=== PATIENT | male | born 1950 | race Caucasian/White ===

== ENCOUNTER 2018-04-20 13:03 | Inpatient (IN) | payer OTHER ==
[~2018-04-20] VITALS: Ht 185.4 cm; Wt 99.8 kg
--- NOTE | ~2018-04-20 | PR ---
[place], [place] PROGRESS NOTE NAME: NGA GIBBS UNIT #: [id number] ROOM: 317 DOCTOR: NESS CUNNINGHAM MD BIRTHDATE: [birth year] DOS: 04/22/2018 INTERVAL NOTE CHIEF COMPLAINT: "Morning." SUMMARY OF THE VISIT: The patient was once again interviewed as he was resting quietly in bed. He had his eyes closed as I entered, but open them very quickly as I called out his name. His responses continued to be very short and simple, at times inappropriate to the questions asked of him and he at times would stop mid sentence and seemed to forget what he was saying. He was pleasant and cooperative with me; however nurses' report, he does have periods of being resistant to care and can be still verbally and physically combative. MENTAL STATUS: He is alert and oriented to self, unclear place, certainly not time. Mood does still seem to be labile. Affect at times inappropriate. As mentioned previously, he does process slowly and he derails in his conversation frequently. Short-term memory continues to be problematic. PLAN: I will increase Exelon patch to its maximum dose of 13.3 mg a day while I maintain Namenda at 5 mg b.i.d., plan to increase this accordingly, maintain his other psychotropics, engage in individual and canales milieu activity, returning then to the least restrictive environment when psychiatrically stable. NESS CUNNINGHAM MD CM:PNTRANS 2 1519 NESS CUNNINGHAM MD 04/22/18 1518 interface
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
[2018-04-20 13:07] VITALS: BP 150/70; BP 94/66
[2018-04-20] MEDS ORDERED: DEPAKOTE500 MG PO (14:17)
[2018-04-20] MEDS ORDERED: EXELON1 EACH T (14:18)
[2018-04-20] MEDS ORDERED: THERA-M1 EACH PO (14:19)
[2018-04-20] MEDS ORDERED: REMERON15 M2 PO (14:20)
[2018-04-20] MEDS ORDERED: VITAMIN D50000 UNIT PO (14:21)
[2018-04-20] MEDS ORDERED: DEPAKOTE250 MG PO (14:22)
[2018-04-20] MEDS ORDERED: LOVENOX30 MG/0.3 SC (14:22)
[2018-04-20] MEDS ORDERED: ATIVAN ORAL C2 MG/ML IM (14:24)
[2018-04-20] MEDS ORDERED: ATIVAN0.5 MG PO (14:25)
[2018-04-20] MEDS ORDERED: NORCO 5-325 TA1 EACH PO (14:25)
[2018-04-20] MEDS ORDERED: VISTARIL25 MG PO (14:26)
[2018-04-20 14:36] VITALS: BP 130/62
[2018-04-20 15:03] VITALS: BP 130/62
[2018-04-20 15:21] LABS: BILIRUBIN NEGATIVE (NEGATIVE); BLOOD NEGATIVE (NEGATIVE); CLARITY SL CLOUDY (CLEAR); COLOR YELLOW (YELLOW); GLUCOSE NEGATIVE (NEGATIVE); KETONE NEGATIVE (NEGATIVE); LEUKO ESTERASE TRACE (NEGATIVE); NITRITE POSITIVE (NEGATIVE); SPECIFIC GRAVITY 1.015 (1.005-1.030); UROBILINOGEN 0.2 E.U./dl (0.2-1.0)
[2018-04-20 15:31] LABS: BACTERIA 4+; WBC 21-30 wbc/hpf (0-5)
[2018-04-20 16:05] LABS: BASO % 0.2 % (0.0-1.0); EOS # 0.1 10*3/uL (0.0-0.4); EOS % 0.5 % (1.0-4.0); HEMATOCRIT 36.4 % (42.0-52.0); HEMOGLOBIN 11.3 g/dl (14.0-18.0); LYMPH # 1.1 10*3/uL (1.3-4.4); LYMPH % 10.3 % (27.0-41.0); MEAN CELL VOLUME 93.6 fl (80.0-94.0); MEAN PLATELET VOLUME 8.8 fl (9.6-12.3); MONO # 0.8 10*3/uL (0.1-1.0); MONO % 6.9 % (3.0-9.0); NEUT # 8.9 10*3/uL (2.3-7.9); NEUT % 81.6 % (47.0-73.0); PLATELET COUNT AUTOMATED 268 10*3/uL (130-400); RED BLOOD COUNT 3.89 10*6/uL (4.50-5.90); RED CELL DISTRI WIDTH 13.8 % (0-14.5); WHITE BLOOD COUNT 10.9 10*3/uL (4.8-10.8)
[2018-04-20 16:15] LABS: ALBUMIN 2.9 gm/dl (3.1-4.5); ALKALINE PHOSPHATASE 235 U/L (45-117); BUN 10 mg/dl (7-24); CHLORIDE 104 mmol/L (98-107); CREATININE 0.71 mg/dL (0.70-1.30); POTASSIUM 3.9 mmol/L (3.5-5.1); SGOT/AST 15 IU/L (3-35); SGPT/ALT 32 U/L (12-78); SODIUM 138 mmol/L (136-145); TOTAL PROTEIN 7.1 gm/dL (6.4-8.2)
[2018-04-20 19:42] VITALS: BP 126/73
[2018-04-21 06:32] LABS: BASO % 0.2 % (0.0-1.0); EOS % 0.2 % (1.0-4.0); HEMOGLOBIN 11.7 g/dl (14.0-18.0); LYMPH # 1.2 10*3/uL (1.3-4.4); LYMPH % 11.1 % (27.0-41.0); MEAN CELL VOLUME 94.1 fl (80.0-94.0); MEAN CORPUSCULAR HGB CONC 30.8 g/dl (33.0-37.0); MEAN PLATELET VOLUME 8.9 fl (9.6-12.3); MONO % 8.9 % (3.0-9.0); NEUT # 8.4 10*3/uL (2.3-7.9); PLATELET COUNT AUTOMATED 266 10*3/uL (130-400); RED BLOOD COUNT 4.04 10*6/uL (4.50-5.90); RED CELL DISTRI WIDTH 13.9 % (0-14.5); WHITE BLOOD COUNT 10.6 10*3/uL (4.8-10.8)
[2018-04-21 06:43] LABS: ALBUMIN 2.8 gm/dl (3.1-4.5); ALKALINE PHOSPHATASE 232 U/L (45-117); BUN 12 mg/dl (7-24); CHLORIDE 104 mmol/L (98-107); CHOLESTEROL 151 mg/dL (<200); CREATININE 0.82 mg/dL (0.70-1.30); HDL CHOLESTEROL 47 mg/dl (40-60); LDL CHOLESTEROL 83 mg/dL (9-159); POTASSIUM 3.8 mmol/L (3.5-5.1); SGOT/AST 9 IU/L (3-35); SGPT/ALT 28 U/L (12-78); SODIUM 142 mmol/L (136-145); TOTAL PROTEIN 7.3 gm/dL (6.4-8.2); TRIGLYCERIDES 103 mg/dl (<150); VLDL CHOLESTEROL 21 mg/dL (6-40)
[2018-04-21 06:48] LABS: THYROID STIM HORMONE (HS) 0.791 uIU/ml (0.358-4.75)
[2018-04-21 07:56] VITALS: BP 130/70
[2018-04-21 07:58] LABS: VITAMIN D, 25-HYDROXY 23.4 ng/mL (30-100)
[2018-04-21 20:23] VITALS: BP 126/86
[2018-04-22 08:03] VITALS: BP 102/68
[2018-04-23] MEDS ORDERED: DEPAKOTE500 MG PO (16:11)
[2018-04-23] MEDS ORDERED: EXELON1 EACH T (16:12)
[2018-04-23] MEDS ORDERED: DEPAKOTE250 MG PO (16:13)
[2018-04-23] MEDS ORDERED: REMERON15 M2 PO (16:13)
[2018-04-23] MEDS ORDERED: ATIVAN ORAL C2 MG/ML IM (16:14)
[2018-04-23] MEDS ORDERED: VISTARIL25 MG PO (16:15)
[2018-04-23] MEDS ORDERED: ATIVAN0.5 MG PO (16:15)
== END 2018-04-22 15:50 | disposition short-term general hospital (02) | DRG 883 ==
LOC: ED 13:03 → 3N 13:43
PROVIDERS: Internal Medicine; Psychiatry & Neurology Psychiatry
DX: F63.81 Intermittent explosive disorder (principal); N30.00 Acute cystitis without hematuria; E44.0 Moderate protein-calorie malnutrition; F03.90 Unspecified dementia, unspecified severity, without behavioral disturbance, psychotic disturbance, mood disturbance, and anxiety; F41.9 Anxiety disorder, unspecified; D64.9 Anemia, unspecified; E55.9 Vitamin D deficiency, unspecified; R73.9 Hyperglycemia, unspecified; R73.03 Prediabetes; Z91.018 Allergy to other foods; Z87.81 Personal history of (healed) traumatic fracture; Z79.899 Other long term (current) drug therapy; Z68.29 Body mass index [BMI] 29.0-29.9, adult

== ENCOUNTER 2018-04-22 15:57 | Inpatient (IN) | payer OTHER ==
[~2018-04-22] VITALS: Ht 182.8 cm; Wt 97.2 kg
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
[~2018-04-22 15:57] MED LIST: ATIVAN ORAL C2 MG/ML IM; ATIVAN0.5 MG PO; DEPAKOTE250 MG PO; DEPAKOTE500 MG PO; EXELON1 EACH T; LOVENOX30 MG/0.3 SC; NORCO 5-325 TA1 EACH PO; REMERON15 M2 PO; THERA-M1 EACH PO; VISTARIL25 MG PO; VITAMIN D50000 UNIT PO
[2018-04-22 16:55] VITALS: BP 125/72
[2018-04-22 20:00] VITALS: BP 126/78
[2018-04-23] VITALS: BP 110/60
[2018-04-23 06:00] LABS: BUN 10 mg/dl (7-24); CHLORIDE 107 mmol/L (98-107); CREATININE 0.65 mg/dL (0.70-1.30); POTASSIUM 3.5 mmol/L (3.5-5.1); SODIUM 142 mmol/L (136-145)
[2018-04-23 06:10] LABS: BASO % 0.5 % (0.0-1.0); EOS # 0.1 10*3/uL (0.0-0.4); EOS % 0.8 % (1.0-4.0); HEMOGLOBIN 9.8 g/dl (14.0-18.0); LYMPH # 1.2 10*3/uL (1.3-4.4); LYMPH % 18.3 % (27.0-41.0); MEAN CORPUSCULAR HGB 28.5 pg (27.0-31.0); MEAN CORPUSCULAR HGB CONC 30.6 g/dl (33.0-37.0); MEAN PLATELET VOLUME 9.5 fl (9.6-12.3); MONO # 0.8 10*3/uL (0.1-1.0); MONO % 11.7 % (3.0-9.0); NEUT # 4.4 10*3/uL (2.3-7.9); NEUT % 68.1 % (47.0-73.0); PLATELET COUNT AUTOMATED 267 10*3/uL (130-400); RED BLOOD COUNT 3.44 10*6/uL (4.50-5.90); WHITE BLOOD COUNT 6.5 10*3/uL (4.8-10.8)
[2018-04-23 08:00] VITALS: BP 117/65
[2018-04-23 16:00] VITALS: BP 152/76
[2018-04-23] MEDS ORDERED: DEPAKOTE500 MG PO (16:11)
[2018-04-23] MEDS ORDERED: EXELON1 EACH T (16:12)
[2018-04-23] MEDS ORDERED: DEPAKOTE250 MG PO (16:13)
[2018-04-23] MEDS ORDERED: REMERON15 M2 PO (16:13)
[2018-04-23] MEDS ORDERED: ATIVAN ORAL C2 MG/ML IM (16:14)
[2018-04-23] MEDS ORDERED: ATIVAN0.5 MG PO (16:15)
[2018-04-23] MEDS ORDERED: VISTARIL25 MG PO (16:15)
[2018-04-24] VITALS: BP 109/87
[2018-04-24 08:00] VITALS: BP 158/76
[2018-04-24 12:20] VITALS: BP 124/62
[2018-04-24 16:00] VITALS: BP 138/59
[2018-04-24 20:00] VITALS: BP 154/77
[2018-04-25] VITALS: BP 149/86
[2018-04-25 06:01] LABS: BASO % 0.3 % (0.0-1.0); EOS # 0.2 10*3/uL (0.0-0.4); EOS % 2.1 % (1.0-4.0); HEMATOCRIT 35.2 % (42.0-52.0); HEMOGLOBIN 10.8 g/dl (14.0-18.0); LYMPH # 1.3 10*3/uL (1.3-4.4); LYMPH % 18.4 % (27.0-41.0); MEAN CORPUSCULAR HGB 27.9 pg (27.0-31.0); MEAN CORPUSCULAR HGB CONC 30.7 g/dl (33.0-37.0); MEAN PLATELET VOLUME 8.8 fl (9.6-12.3); MONO # 0.6 10*3/uL (0.1-1.0); MONO % 7.9 % (3.0-9.0); NEUT % 70.6 % (47.0-73.0); PLATELET COUNT AUTOMATED 299 10*3/uL (130-400); RED BLOOD COUNT 3.87 10*6/uL (4.50-5.90); RED CELL DISTRI WIDTH 13.5 % (0-14.5); WHITE BLOOD COUNT 7.1 10*3/uL (4.8-10.8)
[2018-04-25 06:15] LABS: BUN 5 mg/dl (7-24); CREATININE 0.64 mg/dL (0.70-1.30)
[2018-04-25 08:00] VITALS: BP 150/84
[2018-04-25 16:00] VITALS: BP 157/89
[2018-04-25 20:00] VITALS: BP 131/82
[2018-04-26] VITALS: BP 123/78
[2018-04-26 07:40] VITALS: BP 118/66
[2018-04-26] MEDS ORDERED: DOXYCYCLINE MO100 M1 PO (11:29)
== END 2018-04-26 12:45 | disposition short-term general hospital (02) | DRG 863 ==
LOC: 4E 15:57
PROVIDERS: Internal Medicine; Student in an Organized Health Care Education/Training Program
DX: T81.41XA Infection following a procedure, superficial incisional surgical site, initial encounter (principal); L03.116 Cellulitis of left lower limb; E44.0 Moderate protein-calorie malnutrition; N30.00 Acute cystitis without hematuria; F63.81 Intermittent explosive disorder; R73.9 Hyperglycemia, unspecified; R41.9 Unspecified symptoms and signs involving cognitive functions and awareness; E55.9 Vitamin D deficiency, unspecified; F41.9 Anxiety disorder, unspecified; Y83.8 Other surgical procedures as the cause of abnormal reaction of the patient, or of later complication, without mention of misadventure at the time of the procedure; D64.9 Anemia, unspecified; R73.03 Prediabetes; S06.9X9S Unspecified intracranial injury with loss of consciousness of unspecified duration, sequela; Z91.018 Allergy to other foods; Z79.899 Other long term (current) drug therapy; Y92.89 Other specified places as the place of occurrence of the external cause; Z68.29 Body mass index [BMI] 29.0-29.9, adult